=== PATIENT | female | born 1940 | race Caucasian/White ===

== ENCOUNTER 2019-08-04 12:02 | Emergency (ER) | payer MEDICARE, OTHER ==
[~2019-08-04] VITALS: Ht 157.5 cm; Wt 88.5 kg
[~2019-08-04 12:02] MED LIST: AZITHROMYCIN250 MG PO; BACLOFEN10 MG PO; CYCLOBENZAPRINE10 MG PO; ESTROVEN ENERG1 EACH PO; LEVOTHYROXINE88 MCG PO; LISINOPRIL20 MG PO; MELOXICAM7.5 MG PO; MONTELUKAST SOD10 MG; MONTELUKAST SOD10 MG PO; NORVASC5 MG PO; PERCOCET 5-3251 EACH PO; PROTONIX40 MG PO; RANITIDINE HCL150 MG PO
[2019-08-04] MEDS ORDERED: LOSARTAN POTAS100 MG PO (12:15)
[2019-08-04] MEDS ORDERED: HYDROCHLOROTHIA25 MG PO (12:15)
[2019-08-04] MEDS ORDERED: OMEPRAZOLE10 MG PO (12:15)
[2019-08-04] MEDS ORDERED: TRAZODONE HCL50 MG NG (12:15)
[2019-08-04] MEDS ORDERED: ZITHROMAX250 MG PO (14:13)
[2019-08-04] MEDS ORDERED: VENTOLIN HFA18 GM INH (14:13)
[2019-08-04] MEDS ORDERED: PREDNISONE20 MG PO (14:13)
--- NOTE | 2019-08-04 15:49 | EKG ---
[facility] [address] [place], [place] [address] Signed Normal sinus rhythm Left ventricular hypertrophy with QRS widening Inferior infarct , age undetermined Abnormal ECG No previous ECGs available Confirmed by JAVIER PATEL DO ([id number]) on 08/04/2019 3:49:46 PM Electronically Signed By: JAVIER PATEL DO 08/04/19 1549 PATIENT NAME: CARINABOONEJOHN JOHN Electrocardiogram DATE OF : 40 PHYSICIAN: JAVIER PATEL DO REPORT #: [id number] REPORT IS CONFIDENTIAL AND NOT TO BE RELEASED WITHOUT AUTHORIZATION
== END 2019-08-04 14:35 | disposition home or self-care (01) ==
LOC: ED 12:02
DX: J18.9 Pneumonia, unspecified organism (principal); E03.9 Hypothyroidism, unspecified; K21.9 Gastro-esophageal reflux disease without esophagitis; I10 Essential (primary) hypertension; G43.909 Migraine, unspecified, not intractable, without status migrainosus; Z88.1 Allergy status to other antibiotic agents; Z79.899 Other long term (current) drug therapy
CPT/HCPCS: 71045; 80053; 83735; 84484; 85025; 93005; 93010; 94640; 99285-25; J1100; J7030